=== PATIENT | male | born 1945 | race Caucasian/White ===

== ENCOUNTER 2017-09-02 12:01 | Outpatient (CLI) | payer MEDICARE, OTHER ==
[2017-09-02 13:16] LABS: #Eosinphils 0.1 thou/uL (0.0-0.7); #Lymphocytes 1.4 thou/uL (1.20-3.40); #Monocytes 0.5 thou/uL (0.11-0.59); #Neutrophils 4.4 thou/uL (1.40-6.50); %Basophils 0.7 % (0.0-1.0); %Eosinophils 1.5 % (0.0-10.0); %Lymphocytes 21.3 % (21.0-51.0); %Monocytes 8.2 % (0.0-10.0); %Neutrophils 68.3 % (42.0-75.0); Mean Corpuscular Hemoglobin 33.2 pg (27.0-31.0); Mean Corpuscular Volume 97.6 fl (80.0-94.0); Mean Platelet Volume 7.2 fL (7.4-10.4); Platelet Count 209 thou/uL (130-400); Red Blood Cell (RBC) Count 4.53 mill/uL (4.70-6.10); White Blood Cell (WBC) Count 6.4 thou/uL (4.8-10.8)
[2017-09-02 13:25] LABS: Bilirubin Negative (Negative); Blood, Urine Negative (Negative); Clarity CLEAR (Clear); Glucose, Urine (Dipstick) Negative (Negative); Leukocyte Negative (Negative); Nitrite Negative (Negative); Protein, Urine (Dipstick) Negative (Neg-Trace); Urobilinogen 0.2 mg/dL (0.2-1.0)
[2017-09-02 13:26] LABS: INR-International Normal Ratio 1.1; Prothrombin Time 14.2 SEC (12.0-14.7)
[2017-09-02 13:46] LABS: Anion Gap 11 mmol/L (10-20); BUN (Urea Nitrogen) 12 mg/dL (8.4-25.7); Calc. Creatinine Clearance 0 mL/min (70-130); Calcium 9.7 mg/dL (7.8-10.44); Carbon Dioxide 29 mmol/L (23-31); Chloride 104 mmol/L (98-107); Estimated GFR-MDRD 71; Glucose 113 mg/dL (83-110); Potassium 3.9 mmol/L (3.5-5.1); Sodium 140 mmol/L (136-145)
== END 2017-09-02 12:02 | disposition home or self-care (01) ==
LOC: LABBT 12:01
PROVIDERS: ATTEND Orthopaedic Surgery
DX: Z01.818 Encounter for other preprocedural examination (principal); M17.12 Unilateral primary osteoarthritis, left knee
CPT/HCPCS: 80048; 81003; 85025; 85610; 86850; 86900; 86901; 93005; 93010

== ENCOUNTER 2017-09-08 05:30 | Day surgery (SDC) | payer MEDICARE, OTHER ==
[2017-09-02 12:10] VITALS: BMI 29.8
[2017-09-08] MEDS ORDERED: Tranexamic Acid 1,000 MG/100 ML BAG ONE ×2 (06:05→09:23)
[2017-09-08] MEDS ORDERED: CEFAZOLIN/Water 2 GM/20 ML SYRINGE ONE (06:05)
[2017-09-08] MEDS ORDERED: Vancomycin HCl 1.5 GM in Sodium Chloride 0.9% 250 ML 300 ML IVPB SCH ×2 (06:15→19:00)
[2017-09-08] MEDS ORDERED: Bupivacaine 0.5% 10 ML VIAL ONE ×2 (06:16→06:17)
[2017-09-08] MEDS ORDERED: Lidocaine 1% (PF) 30 ML VIAL ONE (06:29)
[2017-09-08] MEDS ORDERED: Fentanyl 100 MCG/2 ML VIAL ONE (06:29)
[2017-09-08] MEDS ORDERED: Midazolam HCl 2 mg/2 ml Vial ONE (06:29)
[2017-09-08] MEDS ORDERED: HYDROcodone/Acetaminophen 5/325 mg Tablet PO PRN (07:10)
[2017-09-08] MEDS ORDERED: Ondansetron HCl/PF 4 MG/2 ML Vial IVP PRN ×2 (07:10→07:21)
[2017-09-08] MEDS ORDERED: Zolpidem Tartrate 5 MG TAB PO PRN ×2 (07:10→07:21)
[2017-09-08] MEDS ORDERED: Ropivacaine 0.2% 550 ML 550 ML NERVE BLCK SCH (07:10)
[2017-09-08] MEDS ORDERED: traMADol HCl 50 MG TAB PO PRN ×2 (07:10)
[2017-09-08] MEDS ORDERED: Promethazine HCl 25 MG/ML VIAL IM PRN ×2 (07:10→07:21)
[2017-09-08] MEDS ORDERED: Acetaminophen 325 MG TAB PO PRN (07:21)
[2017-09-08] MEDS ORDERED: HYDROcodone/Acetaminophen 10/325 mg Tablet PO PRN (07:21)
[2017-09-08] MEDS ORDERED: diphenhydrAMINE 25 MG CAP PO PRN (07:21)
[2017-09-08] MEDS ORDERED: Tranexamic Acid 1,000 MG in Sodium Chloride 0.9% 100 ML IVPB SCH (07:30)
[2017-09-08] MEDS ORDERED: Multivit, Therapeutic 1 TAB PO SCH (09:00)
--- NOTE | 2017-09-08 09:20 | OP ---
DATE OF PROCEDURE: 09/08/2017 PREOPERATIVE DIAGNOSIS: Left knee osteoarthrosis. POSTOPERATIVE DIAGNOSIS: Left knee osteoarthrosis. PROCEDURE PERFORMED: Left total knee replacement using [place] pinless navigation. SURGEON: Grey Evangelista M.D. WIND TUNNEL ENGINEER: Tres Watson PA-C. BLOOD LOSS: Minimal. COMPLICATIONS: None. He did have general anesthetic. He also had a preoperative block. IMPLANTS: To the left knee has a [place] Triathlon total knee. The femur was size 5 cruciate retain ing, the tibia was size 4 universal baseplate. We used a 4 x 9 mm CSX3 tibial bearing and an asymmet frank 29 x 9 X3 patella. DISPOSITION: He did go to the recovery room in stable condition. INDICATIONS: A 72-year-old male who has failed nonoperative treatment for severe left knee pain seco ndary osteoarthrosis and at this time, he wished to have his knee replaced. PROCEDURE IN DETAIL: After all appropriate consent forms were explained and signed, the patient was t aken back to the Operating Room and at this time was given general anesthetic. Once the level of anes thesia was appropriate, a well-padded tourniquet was placed on the left leg and the leg was then prep ped and draped in standard surgical fashion. The limb was exsanguinated and tourniquet taken up to 30 0 mmHg. Midline incision was made with a 10 blade down through the skin and subcutaneous tissue. Bovi e electrocautery was used to coagulate any brisk venous bleeding. A new blade was used to make a medi al parapatellar arthrotomy. Small subperiosteal release was performed medially and excess fat pad was removed. The knee was flexed up to gain access to the femur. The femur was navigated and distal femo ral resection was made. Epicondylar access was used to align our sizing jig and this was pinned in pl gl[place]. We sized our femur to be a size 5, 4:1 cutting block was applied and pinned. Anterior and marketing support specialist ior chamfer cuts were then made. We navigated out our proximal tibia and made our proximal tibial res ection. Spreaders were used to remove any posterior osteophytes off the back of the femur as well as remaining meniscal tissue. A long alignment sydney was then used to achieve correct rotation of our tibi al baseplate and a size 4 was chosen. This was pinned in place. We trialed the polyethylene and a CSX 3 tibial bearing polyethylene gave us full extension and good stability throughout range of motion. T wo towel clips and a saw were used to cut our patella. Three lug nuts were drilled and 29 x 9 X3 pond lla was trialed which sat nicely in the trochlear groove. We then drilled our femur and punched our t ibia. All components were removed. The knee was thoroughly irrigated and dried. Cement was mixed into the cement gun on the back table. Components were then placed. The knee was held out in full extensi on until the cement had dried. All excess bone cement was removed. Multiple #2 Vicryl stitches as we ll as a Quill was used to close our extensor mechanism. 0 Quill followed by a running Monoderm was th en used to close the skin. Surgicel glue was then used on the skin. Once this had dried, soft tissue dressing was applied to the limb, tourniquet was let down, and the toes pinked up nicely. The patien t was then awakened and taken to the Recovery Room in stable condition. All counts were correct at th e end of the case. The patient did receive preoperative IV antibiotics. The patient was injected wit h Exparel for postoperative pain relief.
[2017-09-08] MEDS: Losartan 25 MG TAB PO SCH (11:16)
[2017-09-08] MEDS: Sodium Chloride 0.9% 1,000 ML IV SCH ×3 (11:18→22:48)
[2017-09-08] MEDS: Amlodipine 5 MG TAB PO SCH (11:20)
[2017-09-08] MEDS: Atorvastatin Calcium 10 MG TAB PO SCH (11:21)
[2017-09-08] MEDS: Aspirin 81 mg Enteric Coated Tablet PO SCH ×2 (11:21→20:23)
[2017-09-08] MEDS: Multivitamin W/ Minerals 1 TAB PO SCH (11:21)
[2017-09-08] MEDS: Ferrous Gluconate 324 MG TAB PO SCH ×2 (11:21→20:22)
[2017-09-08] MEDS: CeleCOXIB 100 MG CAP PO SCH ×2 (11:21→15:22)
[2017-09-08] MEDS: Senokot S 8.6-50 MG TAB PO SCH ×2 (11:22→20:26)
[2017-09-08] MEDS ORDERED: Ropivacaine 0.5% HCl/PF (150 MG/30 ML VIAL) ONE (14:00)
[2017-09-08] MEDS ORDERED: Ropivacaine 0.2% HCl/PF (40 MG/20 ML VIAL) ONE (14:00)
[2017-09-08] MEDS ORDERED: ePHEDrine/0.9% NaCl/PF SYRINGE 50 mg/10 ml ONE (15:00)
[2017-09-08] MEDS ORDERED: Ondansetron HCl/PF 4 MG/2 ML Vial ONE (15:00)
[2017-09-08] MEDS ORDERED: PROPOFOL 200 MG/20 ML VIAL ONE (15:00)
[2017-09-08] MEDS ORDERED: Lidocaine 1% PF 5 ML VIAL ONE (15:00)
[2017-09-08] MEDS: traMADol HCl 50 MG TAB PO PRN (15:24)
[2017-09-08] MEDS: CEFAZOLIN/Water 2 GM/20 ML SYRINGE SLOW IVP SCH ×2 (15:26→22:44)
--- NOTE | 2017-09-08 16:36 | CON ---
DATE OF CONSULTATION: 09/08/2017 Dr. Chappell dictating a consultation to Dr. Grey Evangelista. Consultation for medical management. HISTORY OF PRESENT ILLNESS: Patient is status post left total knee replacement. He is awake and jessica rt. Has no chest pain, shortness of breath, fever, chills, nausea or vomiting. PAST MEDICAL HISTORY: Pertinent for hypertension, dyslipidemia, osteoarthritis, and benign prostatic hypertrophy. HOME MEDICATIONS: Flomax 0.4 mg a day, Celebrex 200 mg a day, Lipitor 10 mg a day, aspirin 81 mg a d ay, and Norvasc 5 mg a day. ALLERGIES: No known drug allergies. PAST SURGICAL HISTORY: Bilateral cataract surgery. FAMILY HISTORY: Mother of a stroke at 99. Father of leukemia at 79. SOCIAL HISTORY: . No tobacco. CODE STATUS: FULL CODE status. Social alcohol. REVIEW OF SYSTEMS: GENERAL: He has occasional vertigo spells, takes meclizine. No fainting. EYES: He has no double vision, blurred vision. EAR, NOSE, AND THROAT: He has seasonal allergies. No ea r pain or drainage. No nasal bleeding. No trouble swallowing. CARDIAC: No chest pain, orthopnea o r paroxysmal nocturnal dyspnea. RESPIRATORY: No cough, wheezing or asthma. GASTROINTESTINAL: No n ausea, vomiting, abdominal pain, diarrhea or constipation. GENITOURINARY: Nocturia and some urgency at times. No hematuria. MUSCULOSKELETAL: He has pain and swelling in his left knee, acutely posto p. Otherwise he has had no pain or swelling in his arms or legs. NEUROLOGIC: No strokes, seizures or focal weakness. PSYCHIATRIC: No anxiety, depression. SKIN: No bruising, bleeding or rash. HEM E/LYMPH: No tender or swollen lymph nodes in axilla, inguinal or cervical area. The patient is awak e, alert, oriented and cooperative. PHYSICAL EXAMINATION: VITAL SIGNS: Blood pressure 140/80, pulse 81, respirations 16, temperature 97.5. HEENT: Examination reveal pupils are equal and round with implants. Extraocular movements are intac t. Sclerae are white. Tympanic membranes are clear. Nose is clear. Oral mucous membranes are wet. Dental hygiene is good. NECK: Supple, without jugular venous distention, adenopathy or thyromegaly. CHEST: Clear to auscultation and percussion. HEART: Had regular rate and rhythm. First and second heart sounds are clear. There are no apprecia ilir murmurs or gallops. ABDOMEN: Soft, bowel sounds are normal. There is no hepatosplenomegaly, no mass, no rebound, no bru its. EXTREMITIES: Reveal no cyanosis, clubbing or edema. Left knee is mildly swollen bandaged. SKIN: The aforementioned bandage on his left knee; otherwise, no bruises, rashes. HEME/LYMPH: No tender or swollen lymph nodes in axilla, inguinal or cervical area. NEUROLOGIC: Cranial nerves II-XII are intact. Moves all extremities. Sensation is intact. IMAGING DATA AND LABORATORY DATA: EKG dated 09/02/2017 normal, reviewed by me. CBC same day, white count 6.4, hemoglobin 15.0, platelet count 209,000. Basic metabolic profile normal. Blood sugar 113 . Urinalysis clear. ADMITTING DIAGNOSES: 1. Osteoarthritis, status post left total knee replacement. 2. Hypertension. 3. Dyslipidemia. 4. Benign prostatic hypertrophy. ASSESSMENT: The patient is stable postop, doing well, we will follow with you. Agree with emiliano kim home medicines.
[2017-09-08] MEDS: HYDROcodone/Acetaminophen 5/325 mg Tablet PO PRN ×2 (17:07→22:47)
[2017-09-08] MEDS ORDERED: Fentanyl 100 MCG/2 ML VIAL IV PRN (17:46)
[2017-09-08] MEDS: Tamsulosin HCl 0.4 MG CAP PO SCH (20:22)
[2017-09-09] MEDS: HYDROcodone/Acetaminophen 5/325 mg Tablet PO PRN (03:58)
[2017-09-09 05:57] LABS: Hemoglobin 12.2 g/dL (14.0-18.0); Mean Corpuscular HGB CONC 34.6 g/dL (32.0-36.0); Mean Corpuscular Hemoglobin 34.3 pg (27.0-31.0); Mean Corpuscular Volume 99.1 fl (80.0-94.0); Mean Platelet Volume 7.1 fL (7.4-10.4); Platelet Count 156 thou/uL (130-400); RBC Distribution Width 12.9 % (11.5-14.5); Red Blood Cell (RBC) Count 3.57 mill/uL (4.70-6.10); White Blood Cell (WBC) Count 7.2 thou/uL (4.8-10.8)
[2017-09-09] MEDS: traMADol HCl 50 MG TAB PO PRN ×2 (06:46→14:16)
[2017-09-09] MEDS: Ketorolac Tromethamine 30 MG/ML VIAL IVP PRN ×2 (06:47→16:36)
[2017-09-09] MEDS: CeleCOXIB 100 MG CAP PO SCH (08:08)
[2017-09-09] MEDS: Losartan 25 MG TAB PO SCH (08:08)
[2017-09-09] MEDS: Atorvastatin Calcium 10 MG TAB PO SCH (08:09)
[2017-09-09] MEDS: Multivitamin W/ Minerals 1 TAB PO SCH (08:09)
[2017-09-09] MEDS: Ferrous Gluconate 324 MG TAB PO SCH ×2 (08:09→20:01)
[2017-09-09] MEDS: Amlodipine 5 MG TAB PO SCH (08:09)
[2017-09-09] MEDS: Senokot S 8.6-50 MG TAB PO SCH ×2 (08:09→20:01)
[2017-09-09] MEDS: Sodium Chloride 0.9% 1,000 ML IV SCH ×2 (08:18→20:16)
[2017-09-09] MEDS: Aspirin 81 mg Enteric Coated Tablet PO SCH ×2 (08:18→20:01)
[2017-09-09] MEDS: HYDROcodone/Acetaminophen 10/325 mg Tablet PO PRN ×3 (12:08→21:15)
--- NOTE | 2017-09-09 13:27 | PDOC.PN ---
- Subjective Encounter Start Date: 09/09/17 Encounter Start Time: 13:24 Subjective: only complaint is uncotrolled pain L knee - Objective MAR Reviewed: Yes Vital Signs & Weight: Vital Signs (12 hours) Temp Pulse Resp BP Pulse Ox 09/09/17 10:55 97.8 F 84 16 09/09/17 10:50 97.8 F 84 16 124/75 95 09/09/17 08:09 81 09/09/17 03:59 81 128/74 Weight Admit Weight 185 lb Weight 185 lb I&O: 09/08/17 09/09/17 09/10/17 06:59 06:59 06:59 Intake Total 1440 Output Total 1250 Balance 190 Result Diagrams: 09/09/17 05:33 Phys Exam - Physical Examination Neck: no JVD Respiratory: clear to auscultation bilateral Cardiovascular: RRR, no significant murmur Gastrointestinal: soft, positive bowel sounds Musculoskeletal: no edema bandaged L knee Dx/Plan (1) HTN (hypertension) Code(s): I10 - ESSENTIAL (PRIMARY) HYPERTENSION Status: Chronic Qualifiers: Hypertension type: essential hypertension Qualified Code(s): I10 - Essential (primary) hypertension (2) Prostatism Code(s): N40.0 - BENIGN PROSTATIC HYPERPLASIA WITHOUT LOWER URINRY TRACT SYMP Status: Chronic (3) Osteoarthritis Code(s): M19.90 - UNSPECIFIED OSTEOARTHRITIS, UNSPECIFIED SITE Status: Chronic Qualifiers: Osteoarthritis location: knee Laterality: left - Plan notified nurse of pain -: cont antihypertensives, flomax, and statin * .
[2017-09-09] MEDS: Tamsulosin HCl 0.4 MG CAP PO SCH (20:01)
[2017-09-10] MEDS: HYDROcodone/Acetaminophen 10/325 mg Tablet PO PRN ×4 (01:23→13:28)
[2017-09-10 04:44] LABS: Hemoglobin 12.1 g/dL (14.0-18.0); Mean Corpuscular HGB CONC 33.8 g/dL (32.0-36.0); Mean Corpuscular Hemoglobin 33.8 pg (27.0-31.0); Mean Corpuscular Volume 99.9 fl (80.0-94.0); Mean Platelet Volume 7.5 fL (7.4-10.4); Platelet Count 175 thou/uL (130-400); RBC Distribution Width 12.9 % (11.5-14.5); Red Blood Cell (RBC) Count 3.59 mill/uL (4.70-6.10); White Blood Cell (WBC) Count 7.1 thou/uL (4.8-10.8)
--- NOTE | 2017-09-10 08:14 | PRG ---
DATE OF SERVICE: 09/09/2017 SUBJECTIVE: Mr. Hogue is a 72-year-old white male who is postoperative day 1 from left total knee ar throplasty. He is doing relatively well. His pain is controlled. I am a little concerned about his quadriceps strength. This is either tourniquet induced or retrograde block, but he has good pain co ntrol with his indwelling catheter. PHYSICAL EXAMINATION: He has good strength distal to this, dorsiflexion, inversion, eversion, but he has flaccid quadriceps on the left. His incision is clean and closed. No strikethrough. Vital sig ns are stable. He is alert and oriented to person, place, time, and situation, and appropriate with examiner. IMPRESSION: A 72-year-old white male postoperative day #1 left total knee arthroplasty. 1. Quadricep muscular palsy. PLAN: Probably keep him overnight in observation, brace at all time when out of bed and turn the blo ck down to see how he tolerates this and recheck in the morning.
[2017-09-10] MEDS: Ferrous Gluconate 324 MG TAB PO SCH (08:32)
[2017-09-10] MEDS: Multivitamin W/ Minerals 1 TAB PO SCH (08:32)
[2017-09-10] MEDS: Amlodipine 5 MG TAB PO SCH (08:32)
[2017-09-10] MEDS: CeleCOXIB 100 MG CAP PO SCH (08:33)
[2017-09-10] MEDS: Losartan 25 MG TAB PO SCH (08:33)
[2017-09-10] MEDS: Aspirin 81 mg Enteric Coated Tablet PO SCH (08:33)
[2017-09-10] MEDS: Atorvastatin Calcium 10 MG TAB PO SCH (08:33)
[2017-09-10] MEDS: Senokot S 8.6-50 MG TAB PO SCH (08:33)
[2017-09-10 11:22] VITALS: TEMP 98.6
[2017-09-10 14:04] VITALS: BP 129/70
--- NOTE | 2017-09-10 16:17 | DIS ---
DATE OF ADMISSION: 09/08/2017 DATE OF DISCHARGE: 09/10/2017 ADMITTED BY: Dr. Grey Evangelista. DISCHARGE DISPOSITION: Discharged home. FINAL DIAGNOSES: Status post left total knee replacement by Dr. Evangelista on 09/08/2017, prostatism, dysl ipidemia, hypertension, osteoarthritis. DISCHARGE MEDICATIONS: Lipitor 10 mg a day, Celebrex 200 mg a day, losartan 50 mg a day, Flomax 0.4 mg a day. ALLERGIES: None. PENDING AT THE TIME OF DISCHARGE: Nothing. CODE STATUS: FULL. HOSPITAL COURSE: Patient with severe osteoarthritis of the left knee. He was admitted and underwent surgery on his left knee. He has done well postoperatively and was discharged by Orthopedic Surgery today. His CBC done on 09/09/2017 showed 7.2 white count, 12.2 hemoglobin, 156,000, platelets. Rep eat done today is essentially the same. The patient's vital signs at the time of discharge were stab le. During his hospital stay, [facility] were consulted for medical management. Follow up wit h Dr. Grey Evangelista, 09/17/2017 at 1:30 p.m. He is to have physical therapy as an outpatient at [facility]. Wound care instructions were given by Dr. Evangelista.
== END 2017-09-10 13:45 | disposition home or self-care (01) ==
LOC: SDC 05:30 → SJJU 07:21 → SDC 09-10 13:45
PROVIDERS: ATTEND Orthopaedic Surgery
PROC: 0SRD0J9 Replacement of Left Knee Joint with Synthetic Substitute, Cemented, Open Approach (ICD-10-PCS; principal; 2017-09-08)
PROC: 8E0YXBZ Computer Assisted Procedure of Lower Extremity (ICD-10-PCS; 2017-09-08)
DX: M17.12 Unilateral primary osteoarthritis, left knee (principal); I10 Essential (primary) hypertension; E78.5 Hyperlipidemia, unspecified; N40.0 Benign prostatic hyperplasia without lower urinary tract symptoms; Z79.1 Long term (current) use of non-steroidal anti-inflammatories (NSAID); Z79.899 Other long term (current) drug therapy; Z98.41 Cataract extraction status, right eye; Z98.42 Cataract extraction status, left eye; Z90.89 Acquired absence of other organs; Z98.890 Other specified postprocedural states
CPT/HCPCS: 20985; 27447; 85027; 97110; 97116 ×3; 97139 ×2; 97150; 97530; A4306; C1713; C1776; G8978; G8979; 36415; J1885; J2001; J2250; J2405; J2704; J2795; J3010; J3370; J3490; J7050

== ENCOUNTER 2021-11-23 12:07 | Outpatient (CLI) | payer MEDICARE, BC | END 2021-11-23 12:08 | disposition home or self-care (01) | LOC: TBSIIMAG 12:07 | PROVIDERS: ATTEND Orthopaedic Surgery | DX: M75.121 Complete rotator cuff tear or rupture of right shoulder, not specified as traumatic (principal) ==